=== PATIENT | male | born 1935 | race Caucasian/White ===

== ENCOUNTER 2020-08-24 13:45 | Inpatient (IN) ==
[2020-08-24 15:18] LABS: Basophils % 0.4 % (0.0-0.8); Eosinophils # 0.1 10*3/uL (0.0-0.87); Hematocrit 28.1 VOL% (42.0-52.0); Hemoglobin 8.7 GM/DL (14.0-18.0); Immature Granulocytes % 0.2 %; Immature Granulocytes Absolute 0.01 #; Lymphocytes # 2.1 10*3/uL (1.4-4.0); Lymphocytes % 46.5 % (21.2-54.2); Mean Corpuscular Volume 78.7 FL (87-102); Mean Platelet Volume 10.1 FL (9.6-12.0); Monocytes % 10.5 % (1.7-12.7); Neutrophils % 40.4 % (38.7-73.9); Platelet Count 226 T/CUMM (130-400); Red Blood Count 3.57 MC/CUMM (3.8-5.5); Red Cell Distribution Width 18.4 % (9.3-17.3); White Blood Count 4.6 T/CUMM (4-12)
[2020-08-24 15:29] LABS: INR 1.2; PT Patient Result 12.8 SECS (9.8-11.9); Partial Thromboplastin Time 31.3 SECS (23.9-33.8)
[2020-08-24 15:37] LABS: Albumin 3.2 G/DL (3.4-5.0); Bilirubin,Total 0.4 MG/DL (0.2-1.0); Osmolality,Calculated 288.7 MOS/KG (273-304); Potassium 4.2 MMOL/L (3.5-5.1); Total Protein 6.3 G/DL (6.4-8.3)
[2020-08-24] MEDS ORDERED: GLUCAGON 1 MG VIAL IM PRN (16:40)
[2020-08-24] MEDS ORDERED: DEXTROSE 50% 25 GM/50 ML VIAL IV PRN (16:40)
[2020-08-24] MEDS ORDERED: ACETAMINOPHEN 325 MG TABLET PO PRN (16:45)
[2020-08-24] MEDS ORDERED: ONDANSETRON 4 MG/2 ML VIAL IV PRN (16:45)
[2020-08-24] MEDS: FUROSEMIDE 40 MG/4 ML VIAL IV SCH (17:38)
[2020-08-24] MEDS: FERROUS GLUCONATE 240 MG TABLET PO SCH (21:10)
[2020-08-24] MEDS: SACUBITRIL/VALSARTAN 49-51 MG TABLET PO SCH (21:10)
[2020-08-25 06:29] LABS: Basophils % 0.5 % (0.0-0.8); Eosinophils # 0.1 10*3/uL (0.0-0.87); Eosinophils % 1.6 % (0.00-10.9); Hematocrit 28.2 VOL% (42.0-52.0); Hemoglobin 8.9 GM/DL (14.0-18.0); Immature Granulocytes % 0.2 %; Immature Granulocytes Absolute 0.01 #; Lymphocytes # 2.9 10*3/uL (1.4-4.0); Lymphocytes % 50.4 % (21.2-54.2); Mean Corpuscular HGB Conc 31.6 GM/DL (32-36); Mean Corpuscular Volume 77.5 FL (87-102); Mean Platelet Volume 9.8 FL (9.6-12.0); Monocytes % 11.1 % (1.7-12.7); Neutrophils % 36.2 % (38.7-73.9); Platelet Count 235 T/CUMM (130-400); Red Blood Count 3.64 MC/CUMM (3.8-5.5); Red Cell Distribution Width 18.4 % (9.3-17.3); White Blood Count 5.8 T/CUMM (4-12)
[2020-08-25 06:47] LABS: Risk Ratio 2.06; VLDL CHOLESTEROL 14.4 MG/DL
[2020-08-25 06:51] LABS: Atypical Lymphocytes Few; Eosinophils 1 % (0-10); Hypochromasia 1+; Lymphocytes 57 % (20-55); Microcytosis 1+; Nucleated Red Blood Cells 1 (0-5); Ovalocytes Slight; Platelet Estimate Adequate; Segmented Neutrophils 32 % (50-85); Total Cells Counted 100
[2020-08-25 06:52] LABS: Calcium 9.2 MG/DL (8.5-10.1); Osmolality,Calculated 290.4 MOS/KG (273-304); Potassium 3.8 MMOL/L (3.5-5.1); Thyroid Stimulating Hormone 1.53 uIU/ml (0.358-3.74)
[2020-08-25] MEDS: ALBUTEROL/IPRATROPIUM 3 ML NEB RESP TX SCH ×4 (07:50→19:39)
[2020-08-25] MEDS: FUROSEMIDE 40 MG/4 ML VIAL IV SCH (08:48)
[2020-08-25] MEDS: THYROID 60 MG TABLET PO SCH (09:23)
[2020-08-25] MEDS: ATORVASTATIN 10 MG TABLET PO SCH (09:23)
[2020-08-25] MEDS: FERROUS GLUCONATE 240 MG TABLET PO SCH ×2 (09:24→19:59)
[2020-08-25] MEDS: ASPIRIN EC 81 MG TABLET PO SCH (09:24)
[2020-08-25] MEDS: SACUBITRIL/VALSARTAN 49-51 MG TABLET PO SCH ×2 (09:24→20:12)
[2020-08-25] MEDS: metOLazone 2.5 MG TABLET PO SCH (09:24)
[2020-08-25] MEDS: PANTOPRAZOLE 40 MG TABLET PO SCH (09:24)
[2020-08-25] MEDS: CHOLECALCIFEROL 1,000 UNIT TABLET PO SCH ×2 (10:16→20:12)
[2020-08-25] MEDS: MAGNESIUM OXIDE 400 MG TABLET PO SCH (10:16)
[2020-08-25] MEDS: POTASSIUM CHLORIDE 20 MEQ TABLET PO SCH (10:16)
[2020-08-25] MEDS: carvediloL 3.125 MG TABLET PO SCH ×2 (10:16→19:59)
[2020-08-25] MEDS: SPIRONOLACTONE 25 MG TABLET PO SCH (10:16)
[2020-08-25] MEDS: ENOXAPARIN 30 MG/0.3 ML SYRINGE SUBCUT SCH (10:17)
[2020-08-25] MEDS ORDERED: ALBUTEROL 2.5 MG/3 ML NEB RESP TX PRN (11:00)
[2020-08-26 05:56] LABS: Basophils % 0.4 % (0.0-0.8); Eosinophils # 0.1 10*3/uL (0.0-0.87); Eosinophils % 1.6 % (0.00-10.9); Hematocrit 26.3 VOL% (42.0-52.0); Hemoglobin 8.2 GM/DL (14.0-18.0); Immature Granulocytes % 0.2 %; Immature Granulocytes Absolute 0.01 #; Lymphocytes # 1.8 10*3/uL (1.4-4.0); Lymphocytes % 35.3 % (21.2-54.2); Mean Corpuscular HGB Conc 31.2 GM/DL (32-36); Mean Corpuscular Volume 76.7 FL (87-102); Mean Platelet Volume 10.5 FL (9.6-12.0); Monocytes % 11.8 % (1.7-12.7); Neutrophils % 50.7 % (38.7-73.9); Platelet Count 218 T/CUMM (130-400); Red Blood Count 3.43 MC/CUMM (3.8-5.5); Red Cell Distribution Width 18.1 % (9.3-17.3)
[2020-08-26 06:08] LABS: Calcium 9.1 MG/DL (8.5-10.1); Osmolality,Calculated 291.5 MOS/KG (273-304); Potassium 3.9 MMOL/L (3.5-5.1)
[2020-08-26] MEDS ORDERED: MAGNESIUM HYDROXIDE SUSP 30 ML UDCUP PO PRN (06:10)
[2020-08-26] MEDS: ALBUTEROL/IPRATROPIUM 3 ML NEB RESP TX SCH ×2 (07:04→10:58)
[2020-08-26] MEDS ORDERED: BISACODYL 5 MG TABLET PO ONE (08:22)
[2020-08-26] MEDS ORDERED: MAGNESIUM HYDROXIDE SUSP 30 ML UDCUP PO ONE (08:22)
[2020-08-26] MEDS ORDERED: FLUTICASONE 50 MCG NASAL SPRAY 16 GM BOTTLE BOTH NARES SCH (09:00)
[2020-08-26] MEDS ORDERED: ESCITALOPRAM 10 MG TABLET PO SCH (09:00)
[2020-08-26] MEDS: FUROSEMIDE 40 MG/4 ML VIAL IV SCH (09:46)
[2020-08-26] MEDS: ENOXAPARIN 30 MG/0.3 ML SYRINGE SUBCUT SCH (09:47)
[2020-08-26] MEDS: carvediloL 3.125 MG TABLET PO SCH (09:47)
[2020-08-26] MEDS: metOLazone 2.5 MG TABLET PO SCH (09:47)
[2020-08-26] MEDS: CHOLECALCIFEROL 1,000 UNIT TABLET PO SCH (09:48)
[2020-08-26] MEDS: SACUBITRIL/VALSARTAN 49-51 MG TABLET PO SCH (09:48)
[2020-08-26] MEDS: THYROID 60 MG TABLET PO SCH (09:48)
[2020-08-26] MEDS: MAGNESIUM OXIDE 400 MG TABLET PO SCH (09:49)
[2020-08-26] MEDS: PANTOPRAZOLE 40 MG TABLET PO SCH (09:49)
[2020-08-26] MEDS: ASPIRIN EC 81 MG TABLET PO SCH (09:49)
[2020-08-26] MEDS: SPIRONOLACTONE 25 MG TABLET PO SCH (09:49)
[2020-08-26] MEDS: ATORVASTATIN 10 MG TABLET PO SCH (09:49)
[2020-08-26] MEDS: POTASSIUM CHLORIDE 20 MEQ TABLET PO SCH (09:50)
[2020-08-26] MEDS: FERROUS GLUCONATE 240 MG TABLET PO SCH (09:50)
[2020-08-26 11:56] VITALS: BP 93/51
== END 2020-08-26 12:45 | disposition home health service (06) | DRG 291 ==
LOC: N.ED 13:45 → N.EDINP 16:32 → N.TELES 19:21
PROVIDERS: ADMIT Internal Medicine; ATTEND Internal Medicine